=== PATIENT | male | born 1965 | race Caucasian/White ===

== ENCOUNTER 2021-09-27 19:27 | Emergency (ER) | payer OTHER ==
[2021-09-27 19:33] VITALS: BP 158/112; PULSE 64; TEMP 98.2; BMI 28.0
== END 2021-09-27 21:24 | disposition left against medical advice (07) ==
LOC: JER 19:27
DX: R51.9 Headache, unspecified (principal); I10 Essential (primary) hypertension
CPT/HCPCS: 99283-25